=== PATIENT | male | born 1990 | race Caucasian/White ===

== ENCOUNTER 2017-04-04 21:07 | Emergency (ER) | payer OTHER ==
[2017-04-04 21:12] VITALS: BP 133/83; PULSE 77; TEMP 97; BMI 22.5
[2017-04-04] MEDS ORDERED: KETOROLAC TROMETHAMINE 60 MG/2 ML VIAL ONE (21:25)
[2017-04-04] MEDS ORDERED: CYCLOBENZAPRINE HCL 10 MG TABLET (FP) ONE (21:28)
--- NOTE | 2017-04-04 21:28 | PDOC ---
History of Present Illness - General Chief Complaint: Back Pain Stated Complaint: PAIN Time Seen by Provider: 04/04/17 21:17 History Source: Patient Exam Limitations: No Limitations - History of Present Illness Initial Comments: 04/04/17 21:19 Was at gym working out and felt an acute onset of pain in his back and felt a pop b to his left buttock with radiating pain down posterior thigh. Patient states had a hamstring injury some months before similar type pain but did not feel a pop. States was gradually improving but today's injury re-exacerbated that pain but is worse. Denies bowel or bladder problem no fever, no true back pain. 04/04/17 21:30 Occurred: reports: just prior to arrival, this evening Severity: reports: mild, moderate Pain Location: reports: back Method of Injury: Yes: fall Modifying Factors: improves with: pain medication Associated Symptoms (Fall): denies symptoms Past History - Travel Traveled outside of the country in the last 30 days: No Close contact w/someone who was outside of country & ill: No - Past Medical History Allergies/Adverse Reactions: Allergies Allergy/AdvReac Type Severity Reaction Status Date / Time No Known Allergies Allergy Verified 04/04/17 21:12 Home Medications: Ambulatory Orders Cyclobenzaprine HCl [Flexeril 10 mg] 10 mg PO BID PRN #14 tablet 04/04/17 Other medical history: denies - Psycho/Social/Smoking Cessation Hx Suicidal Ideation: No Smoking History: Never smoked Review of Systems - Review of Systems Able to Perform ROS?: Yes Is the patient limited German proficient: Yes Constitutional: Yes: Symptoms Reported, See HPI, Malaise HEENTM: No: Symptoms Reported Respiratory: Yes: See HPI. No: Symptoms reported Musculoskeletal: Yes: Symptoms Reported, See HPI, Back Pain, Muscle Weakness All Other Systems: Reviewed and Negative *Physical Exam - Vital Signs Last Vital Signs Temp Pulse Resp BP Pulse Ox 97 F L 77 18 133/83 99 04/04/17 21:10 04/04/17 21:10 04/04/17 21:10 04/04/17 21:10 04/04/17 21:10 - Physical Exam General Appearance: Yes: Nourished, Appropriately Dressed, Apparent Distress, Moderate Distress HEENT: positive: ELIZABETH, Normal ENT Inspection, TMs Normal, Pharynx Normal Neck: positive: Supple. negative: Tender Respiratory/Chest: positive: Lungs Clear, Normal Breath Sounds Musculoskeletal: positive: Normal Inspection, Decreased Range of Motion, Muscle Spasm (tight and tense musculature to the left paravertebral spinous muscles and into deep left gluteus. Has radiating pain down posterior aspect of the leg , states foot feels heavy but sensation intact to foot. Able to bend at waist to approximately 30 after, re-creates more spasm.). negative: CVA Tenderness Extremity: positive: Normal Capillary Refill. negative: Normal Range of Motion Integumentary: positive: Normal Color Neurologic: positive: transportation assistant II-XII NML intact, Fully Oriented, Alert, Normal Mood/ Affect, Normal Response, Motor Strength 02/02 Progress Note - Progress Note Progress Note: Low back strain, will treat with NSAIDs and cyclobenzaprine and have follow-up with PMD for further evaluation and possible further testing *DC/Admit/Observation/Transfer Diagnosis at time of Disposition: Low back strain Qualifiers: Encounter type: initial encounter Qualified Code(s): S39.012A - Strain of muscle, fascia and tendon of lower back, initial encounter - Discharge Dispostion Disposition: HOME Condition at time of disposition: Stable Admit: No - Patient Instructions Printed Discharge Instructions: DI for Back Strain or Sprain Additional Instructions: Rest, no heavy lifting or exercise until pain is resolved Hot soaks to neck and low back as often as possible/hot showers or Jacuzzis No massage or therapy until spasm is gone Continue ibuprofen 2-200 mg tablets every 6 hours for the next 3 days then as needed for pain and swelling Cyclobenzaprine 1-10mg every 8 hours as needed for spasm If not significant improvement within 24 hours with medication and rest regime, followup with private physician for change in medications and /or therapy. - Post Discharge Activity Work/School Note: Back to Work
[2017-04-04] MEDS ORDERED: CYCLOBENZAPRINE HCL 10 MG TABLET (FP) PO ONE (21:29)
[2017-04-04] MEDS ORDERED: KETOROLAC TROMETHAMINE 60 MG/2 ML VIAL IM ONE (21:29)
== END 2017-04-04 21:44 | disposition home or self-care (01) ==
LOC: JERFT 21:07
PROC: 3E0233Z Introduction of Anti-inflammatory into Muscle, Percutaneous Approach (ICD-10-PCS; principal; 2017-04-04)
DX: S39.012A Strain of muscle, fascia and tendon of lower back, initial encounter (principal); X50.1XXA Overexertion from prolonged static or awkward postures, initial encounter; Y93.A9 Activity, other involving cardiorespiratory exercise; Y92.39 Other specified sports and athletic area as the place of occurrence of the external cause
CPT/HCPCS: 96372; 99281-25

== ENCOUNTER 2017-04-08 19:25 | Emergency (ER) | payer OTHER ==
[2017-04-08 19:29] VITALS: TEMP 97.8; BMI 22.5
[2017-04-08] MEDS ORDERED: KETOROLAC TROMETHAMINE 60 MG/2 ML VIAL IM ONE (22:28)
--- NOTE | 2017-04-08 22:36 | PDOC ---
"History of Present Illness - General Chief Complaint: Pain Stated Complaint: PAIN Time Seen by Provider: 04/08/17 21:52 History Source: Patient Exam Limitations: No Limitations - History of Present Illness Initial Comments: 04/08/17 22:58 CHIEF COMPLAINT: worsening left sided lower back pain radiating down left leg HISTORY OF PRESENT ILLNESS: Patient is a 26-year-old male with no significant medical problems here today with worsening left-sided lower back pain radiating down left leg to foot with tingling of his left foot over the past week. Patient was seen here on 04/04/2017 was given toradol and Flexeril which patient claims has not helped pain. He reports first injuring his back 2 months ago when he was doing the leg pressing machine at his gym. Patient had been seen by his primary care provider and referred to physical therapy which did not resolve. 04/11/17 14:34 Occurred: reports: last week Severity: reports: severe Pain Location: reports: back (left side lower back radiates down left buttock leg to foot with tingling of foot ) Method of Injury: Yes: other (leg machine at gym 2 months ago ) Loss of Consciousness: no loss of consciousness Associated Symptoms (Fall): denies symptoms Past History - Past Medical History Allergies/Adverse Reactions: Allergies Allergy/AdvReac Type Severity Reaction Status Date / Time No Known Allergies Allergy Verified 04/08/17 19:29 Home Medications: Ambulatory Orders Cyclobenzaprine HCl [Flexeril 10 mg] 10 mg PO BID PRN #14 tablet 04/04/17 Naproxen [Naprosyn -] 500 mg PO BID PRN #14 tablet 04/08/17 Oxycodone HCl/Acetaminophen [Percocet 5-325 mg Tablet] 1 tab PO Q6H PRN #8 tablet MDD 4 04/08/17 Other medical history: denies - Psycho/Social/Smoking Cessation Hx Suicidal Ideation: No Smoking History: Never smoked Review of Systems - Review of Systems Able to Perform ROS?: Yes Constitutional: No: Symptoms Reported HEENTM: No: Symptoms Reported Respiratory: No: Symptoms reported Cardiac (ROS): No: Symptoms Reported ABD/GI: No: Symptoms Reported : No: Symptoms Reported Musculoskeletal: Yes: Back Pain (left sided lower back pain radiates down left buttock, leg to foot) Integumentary: No: Symptoms Reported Neurological: Yes: Tingling (left foot) *Physical Exam - Vital Signs Last Vital Signs Temp Pulse Resp BP Pulse Ox 97.8 F 51 L 18 116/80 99 04/08/17 19:26 04/08/17 19:26 04/08/17 19:26 04/08/17 19:26 04/08/17 19:26 - Physical Exam General Appearance: Yes: Appropriately Dressed Respiratory/Chest: positive: Lungs Clear, Normal Breath Sounds. negative: Chest Tender, Respiratory Distress Cardiovascular: positive: Regular Rhythm, Regular Rate, S1, S2 Vascular Pulses: Doralis-Pedis (L): 4+ Musculoskeletal: positive: Normal Inspection, Decreased Range of Motion (from waist bending forward). negative: CVA Tenderness, CVA Tenderness (R), CVA Tenderness (L) Integumentary: positive: Normal Color Neurologic: positive: Fully Oriented, Alert, Normal Response, Motor Strength 5/5 , Respond to painful stimul (b/l legs ), Responsive, Other (negative SLR b/l ). negative: Numbness, Sensory Deficit (legs b/l ) Deep Tendon Reflexes: Knee (L): 4+, Knee (R): 4+ Medical Decision Making - Medical Decision Making 04/08/17 23:00 Patient is a 26-year-old male with no significant medical problems here today with worsening left-sided lower back pain radiating down left leg to foot with tingling of his left foot over the past week. Patient was seen here on 2016 was given R axis for Flexeril which patient claims has not helped pain. He reports first injuring his back 2 months ago when he was doing the leg pressing machine at his gym. Patient had been seen by his primary care provider and referred to physical therapy which did not resolve. Left sided lumbar back pain with radiculopathy PLAN: toradol 60 mg IM now percocet 5mg/325mg po every 6 hrs prn severe back pain # 8 follow up with ortho tomorrow Data Detail Level: Printer-Friendly View Extended View Confidential Drug Utilization Report Search Terms: Fely Lea, 1990 Search Date: 04/08/2017 11:04:35 PM The Drug Utilization Report below displays all of the controlled substance prescriptions, if any, that your patient has filled in the last twelve months. The information displayed on this report is compiled from pharmacy submissions to the Department, and accurately reflects the information as submitted by the pharmacies. This report was requested by: Kaleigh Jones Mavis | Reference #: [id number] There are no results for the search terms that you entered. Revise Search Terms Search Other States 04/08/17 23:04 *DC/Admit/Observation/Transfer Diagnosis at time of Disposition: Lumbar pain with radiation down left leg - Discharge Dispostion Disposition: HOME Condition at time of disposition: Stable - Prescriptions Prescriptions: Naproxen [Naprosyn -] 500 mg PO BID PRN #14 tablet PRN Reason: Pain Oxycodone HCl/Acetaminophen [Percocet 5-325 mg Tablet] 1 tab PO Q6H PRN #8 tablet MDD 4 PRN Reason: Severe Pain - Referrals Referrals: Cristina Christian [Primary Care Provider] - Manish Velázquez MD [Staff Physician] - - Patient Instructions Additional Instructions: Avoid any strenuous activities or exercise Follow-up with orthopedist tomorrow call at 9 AM told them that you were seen here and referred to them for further evaluation Return to emergency room if any worsening pain and numbness of leg or private area Voice understanding of discharge instructions and all questions were answered"
[2017-04-08] MEDS ORDERED: KETOROLAC TROMETHAMINE 60 MG/2 ML VIAL ONE (22:39)
[2017-04-11 11:55] VITALS: BP 122/70; PULSE 62
== END 2017-04-08 23:04 | disposition home or self-care (01) ==
LOC: JERFT 19:25
PROC: 3E0233Z Introduction of Anti-inflammatory into Muscle, Percutaneous Approach (ICD-10-PCS; principal; 2017-04-08)
DX: M54.16 Radiculopathy, lumbar region (principal)
CPT/HCPCS: 96372; 99281-25; 99283-25